=== PATIENT | female | born 1985 | race Caucasian/White ===

== ENCOUNTER 2019-12-15 03:44 | Emergency (ER) | payer OTHER ==
[2019-12-15 05:21] LABS: BHCG - Serum Negative (NEGATIVE); Pregs Control Background? CLEAR/WHITE (CLR/WHITE); Pregs Control Bar Appear? YES (CONTROL BAR)
[2019-12-15] MEDS ORDERED: Ketorolac Tromethamine 30 MG/ML VIAL ONE ×2 (05:56→06:01)
--- NOTE | 2019-12-15 07:31 | CT ---
CT OF THE BRAIN WITHOUT CONTRAST: INDICATION: History of ground level fall with loss of consciousness. COMPARISON: None. FINDINGS: There is a laceration contusion involving the left parietal scalp. Small left frontal contusion is p resent. The skull is intact. Mastoid air cells are clear. There is mucosal thickening within the ethmoid ai r cells and maxillary sinuses. No acute infarct, hemorrhage, or hydrocephalus is present. The septum pellucidum and third ventricle are midline. IMPRESSION: 1. No acute intracranial abnormality. 2. Left parietal scalp contusion and laceration. Left frontal scalp contusion. 3. Mild paranasal sinus disease. POS: BH
--- NOTE | 2019-12-15 07:32 | CT ---
CT CERVICAL SPINE WITHOUT CONTRAST: INDICATION: Ground level fall with concern for neck injury. COMPARISON: None. FINDINGS: No acute fracture or subluxation is evident. Osseous central canal appears preserved. Prevertebral soft tissues are normal-appearing. Craniocervical junction is normal-appearing. Lung apices are vick ar. IMPRESSION: No acute fracture or subluxation demonstrated. POS: BH
--- NOTE | 2019-12-15 07:38 | CT ---
CT OF THE CHEST WITHOUT IV CONTRAST: INDICATION: A 34-year-old female status post ground level fall hitting the back of the head with loss of consciou sness, laceration of the back of head, drowsiness, and complaints of upper back pain. COMPARISON: None. FINDINGS: The lungs are clear. No pleural effusion or pneumothorax is evident. Lack of IV contrast limits evaluation of vascular injury and solid organ injury of the upper abdomen. No definite acute abnormality is evident grossly within the mediastinum or axillary regions. No ches t wall contusion is grossly evident. Visualized upper abdomen is unremarkable. There is S-shaped thoracolumbar scoliotic curvature. No acute fracture is evident. IMPRESSION: No definite traumatic injury to the thorax within the limitations of this noncontrast exam. POS: BH
== END 2019-12-15 06:25 | disposition home or self-care (01) ==
LOC: ERS 03:44
DX: S06.0X9A Concussion with loss of consciousness of unspecified duration, initial encounter (principal); F41.9 Anxiety disorder, unspecified; W01.10XA Fall on same level from slipping, tripping and stumbling with subsequent striking against unspecified object, initial encounter
CPT/HCPCS: 36415; 70450; 71250; 72125; 84703; 96372; J1885